=== PATIENT | male | born 1965 | race Caucasian/White ===

== ENCOUNTER 2016-12-18 05:57 | Observation (INO) | payer SELFPAY ==
[~2016-12-18] VITALS: Ht 188 cm; Wt 64.0 kg
[~2016-12-18 05:57] MED LIST: ADVAIR DISK1 INH; ADVAIR DISK2 INH; ADVAIR HF1 IN; ALBUTERO1 IN; ALBUTEROL S2.5 MG/.5 IN; ALBUTEROL0.083 % IN; AMOXICILLIN500 MG OR; AMOXICILLIN500 MG PO; AMOXICILLIN875 MG OR; ATIVAN0.5 MG PO; ATIVAN1 M1 PO; ATROVENT INH0.5 MG IN; AUGMENTIN875 MG OR; AZITHROMYCIN250 MG PO; BACTRIM DS1 TAB OR; BACTRIM1 TAB OR; BUSPIRONE5 MG PO; CEPHALEXIN500 MG PO; CIPRO500 MG OR; CIPROFLOXACN500 MG PO; COMBIVENT IN; DEPO-MEDROL80 MG/ML IM; DIAZEPAM5 MG PO; DOXEPIN HCL10 MG PO; FLEXERIL OR; FLEXERIL PO; FLEXERIL10 MG PO; GABAPENTIN300 MG PO; HYDROCO/APAP1 TA9 PO; KETOROLAC10 MG OR; KETOROLAC60 MG/2 ML IJ; LIBRIUM25 MG PO; LORTAB 5 OR; LORTAB 5-325 MG1 TAB PO; LORTAB 5/3255 MG PO; LORTAB 7.5 PO; LORTAB 7.5-3251 TAB PO; LORTAB/VICODIN1 TAB OR; LORTAB5 PO; Levaquin PO; MEDDOSEPAK OR; MEDDOSEPAK PO; MEDROL4 M1 PO; NAPROSYN500 MG OR; NAPROXEN EC500 MG OR; NEBULIZER; OMNICEF300 MG OR; PAROXETINE10 MG PO; PREDNISONE10 MG PO; PRIMATENE0.22 MG/A IN; PROAIR HFA IN; PROVENTIL INH17 GM IN; ROBITUSSIN AC10 ML PO; ROCEPHIN 1 GM1 GM IM; SOLU-MEDROL125 MG IM; SOMA350 MG OR; TORADOL PO; TRAMADOL HCL E100 M1 PO; TRAMADOL HCL100 MG PO; TRAMADOL HCL50 MG; TRAMADOL HCL50 MG OR; TRAMADOL HCL50 MG PO; TRAZODONE50 MG PO; TUBERSOL5 MG/0.1 M ID; TYLENOL500 MG OR; ULTRAM50 M1 PO; ULTRAM50 MG OR; ULTRAM50 MG PO; VENTOLIN HF1 IN; VENTOLIN HFA IN; ZITHROMAX250 MG PO; ZITHROMAX500 MG PO
[2016-12-18 06:46] LABS: HEMOGLOBIN 14.7 g/dl (14.0-18.0); IMMATURE GRANULOCYTES 0.2 % (0.0-1.0); MEAN CORPUSCULAR HGB 36.2 pG CALC (26.0-32.0); MEAN CORPUSCULAR HGB CONC 35.9 g/L CALC (32.0-36.0); NEUT# 2.64 thou/uL (1.82-7.42); RED BLOOD COUNT 4.06 mill/uL (4.70-6.10); RED CELL DISTRI WIDTH 15.2 % (11.5-15.5)
[2016-12-18 06:57] LABS: ALBUMIN 4.1 g/dL (3.2-5.0); ALKALINE PHOSPHATASE 121 u/l (38-126); ANION GAP 21 (6-22 (CALC)); BILIRUBIN, TOTAL 1.4 mg/dL (0.0-1.4); BUN 6 mg/dL (9-20); BUN/CREATININE RATIO 9 (12-20 (CALC)); CALCIUM 8.7 mg/dL (8.4-10.2); CARBON DIOXIDE 25 mmol/l (22-30); CHLORIDE 104 mmol/l (95-108); CREATININE 0.7 mg/dL (0.7-1.3); GFR > 60 ML/MIN (>=60 (CALC)); GFR FOR AFR.AMER. > 60 ML/MIN (>=60 (CALC)); GLUCOSE 133 mg/dL (75-110); POTASSIUM 3.4 mmol/l (3.5-5.1); SGOT/AST 154 u/l (17-59); SGPT/ALT 56 u/l (21-72); SODIUM 145 mmol/l (137-146); TOTAL PROTEIN 7.3 g/dL (6.3-8.2)
[2016-12-18 07:08] LABS: MYOGLOBIN 44 ng/mL (0 - 121)
[2016-12-18 07:09] LABS: ACT PARTIAL THROMBO TIME 25.5 SECONDS (20.0-32.5); PROTHROMBIN TIME 11.4 SECONDS (9.0-12.5)
[2016-12-18 10:24] VITALS: BP 150/93
[2016-12-18 15:26] VITALS: BP 146/73
[2016-12-18 20:45] VITALS: BP 144/88
[2016-12-18 23:28] VITALS: BP 148/87
[2016-12-19 04:38] VITALS: BP 149/98
[2016-12-19 06:23] LABS: HEMATOCRIT 32.9 % (39.0-50.0); HEMOGLOBIN 11.9 g/dl (14.0-18.0); IMMATURE GRANULOCYTES 0.6 % (0.0-1.0); MEAN CELL VOLUME 102.5 fL CALC (80.0-100.0); MEAN CORPUSCULAR HGB 37.1 pG CALC (26.0-32.0); MEAN CORPUSCULAR HGB CONC 36.2 g/L CALC (32.0-36.0); NEUT# 5.71 thou/uL (1.82-7.42); RED BLOOD COUNT 3.21 mill/uL (4.70-6.10); RED CELL DISTRI WIDTH 14.6 % (11.5-15.5)
[2016-12-19 06:31] LABS: BUN 5 mg/dL (9-20); BUN/CREATININE RATIO 9 (12-20 (CALC)); CALCIUM 8.6 mg/dL (8.4-10.2); CALCULATED LDLCHOLESTEROL 27 mg/dL (62-129 (CALC)); CARBON DIOXIDE 29 mmol/l (22-30); CHLORIDE 101 mmol/l (95-108); CREATININE 0.6 mg/dL (0.7-1.3); GFR > 60 ML/MIN (>=60 (CALC)); GFR FOR AFR.AMER. > 60 ML/MIN (>=60 (CALC)); GLUCOSE 115 mg/dL (75-110); HDL CHOLESTEROL 99 mg/dL (>=40); MAGNESIUM 1.3 mg/dL (1.6-2.3); POTASSIUM 3.6 mmol/l (3.5-5.1); TOTAL CHOLESTEROL 140 mg/dl (0-199); TOTAL TRIGLYCERIDES 72 mg/dl (30-149); VLDL CHOLESTROL 14 mg/dl (8-62 (CALC))
[2016-12-19 06:45] LABS: ANION GAP 9 (6-22 (CALC)); SODIUM 135 mmol/l (137-146)
[2016-12-19 09:43] VITALS: BP 157/97
[2016-12-19 12:11] VITALS: BP 134/82
[2016-12-19] MEDS ORDERED: MEDDOSEPAK PO (14:25)
[2016-12-19] MEDS ORDERED: LIBRIUM25 M1 PO (14:25)
== END 2016-12-19 17:30 | disposition home or self-care (01) | DRG 313 ==
LOC: ENPENDDIS → ED 05:57 → ED-I 07:55 → ED 08:44 → MS2 08:45
PROVIDERS: Emergency Medicine; ADMIT Internal Medicine; ATTEND Internal Medicine
PROC: 3E0234Z Introduction of Serum, Toxoid and Vaccine into Muscle, Percutaneous Approach (ICD-10-PCS; principal; 2016-12-19)
DX: R07.89 Other chest pain (principal); J44.1 Chronic obstructive pulmonary disease with (acute) exacerbation; F10.239 Alcohol dependence with withdrawal, unspecified; F17.210 Nicotine dependence, cigarettes, uncomplicated; J45.909 Unspecified asthma, uncomplicated; F32.9 Major depressive disorder, single episode, unspecified; G89.29 Other chronic pain; Z23 Encounter for immunization
CPT/HCPCS: G0378; J1650; J2060; Q9967

== ENCOUNTER 2017-01-02 21:21 | Emergency (ER) | payer SELFPAY ==
[~2017-01-02] VITALS: Ht 188 cm; Wt 63.6 kg
[~2017-01-02 21:21] MED LIST changes: +LIBRIUM25 M1 PO
[2017-01-02] MEDS ORDERED: LORAZEPAM0.5 MG PO (21:57)
[2017-01-02] MEDS ORDERED: VITAMIN B-12500 MCG PO (21:57)
[2017-01-02 22:25] LABS: HEMATOCRIT 38.7 % (39.0-50.0); HEMOGLOBIN 13.5 g/dl (14.0-18.0); IMMATURE GRANULOCYTES 0.3 % (0.0-1.0); MEAN CELL VOLUME 105.7 fL CALC (80.0-100.0); MEAN CORPUSCULAR HGB 36.9 pG CALC (26.0-32.0); MEAN CORPUSCULAR HGB CONC 34.9 g/L CALC (32.0-36.0); NEUT# 5.05 thou/uL (1.82-7.42); RED BLOOD COUNT 3.66 mill/uL (4.70-6.10); RED CELL DISTRI WIDTH 14.5 % (11.5-15.5)
[2017-01-02 22:26] LABS: URINE BILIRUBIN - DIPSTICK NEGATIVE (NEGATIVE); URINE BLOOD DIPSTICK NEGATIVE (NEGATIVE); URINE CLARITY CLEAR; URINE COLOR YELLOW; URINE GLUCOSE - DIPSTICK NEGATIVE (NEGATIVE); URINE KETONE TRACE mg/dL (NEGATIVE); URINE LEUK ESTERASE NEGATIVE (NEGATIVE); URINE NITRITE - DIPSTICK NEGATIVE (Negative); URINE PROTEIN - DIPSTICK NEGATIVE (NEG-TRACE); URINE SPECIFIC GRAVITY <=1.005; URINE UROBILINOGEN - DIPSTICK 0.2 E.U./dL (0.2)
[2017-01-02 22:28] LABS: COCAINE NEGATIVE (NEGATIVE); TETRAHYDROCANNABIONOL NEGATIVE (NEGATIVE)
[2017-01-02 22:29] LABS: BARBITURATES NEGATIVE (NEGATIVE); METHADONE NEGATIVE (NEGATIVE); OXCYCODONE NEGATIVE (NEGATIVE); TRICYLIC ANTIDEPRESSANTS NEGATIVE (NEGATIVE)
[2017-01-02 22:44] LABS: ALBUMIN 4.2 g/dL (3.2-5.0); ALKALINE PHOSPHATASE 162 u/l (38-126); ANION GAP 23 (6-22 (CALC)); BILIRUBIN, TOTAL 0.5 mg/dL (0.0-1.4); BUN 6 mg/dL (9-20); BUN/CREATININE RATIO 8 (12-20 (CALC)); CALCIUM 8.8 mg/dL (8.4-10.2); CARBON DIOXIDE 19 mmol/l (22-30); CHLORIDE 106 mmol/l (95-108); CREATININE 0.7 mg/dL (0.7-1.3); GFR > 60 ML/MIN (>=60 (CALC)); GFR FOR AFR.AMER. > 60 ML/MIN (>=60 (CALC)); GLUCOSE 68 mg/dL (75-110); SGOT/AST 119 u/l (17-59); SGPT/ALT 105 u/l (21-72); SODIUM 144 mmol/l (137-146); TOTAL PROTEIN 7.2 g/dL (6.3-8.2)
[2017-01-02 22:53] LABS: ETHYL ALCOHOL 479 mg/dl (0-30)
[2017-01-03 06:27] VITALS: BP 124/67
== END 2017-01-03 06:28 | disposition home or self-care (01) | DRG 125 ==
LOC: ED 21:21
PROVIDERS: Emergency Medicine
PROC: 0HQ1XZZ Repair Face Skin, External Approach (ICD-10-PCS; principal; 2017-01-02)
DX: S01.111A Laceration without foreign body of right eyelid and periocular area, initial encounter (principal); F10.129 Alcohol abuse with intoxication, unspecified; W01.0XXA Fall on same level from slipping, tripping and stumbling without subsequent striking against object, initial encounter; Y92.008 Other place in unspecified non-institutional (private) residence as the place of occurrence of the external cause; F17.210 Nicotine dependence, cigarettes, uncomplicated; Y90.8 Blood alcohol level of 240 mg/100 ml or more

== ENCOUNTER 2017-01-07 15:13 | Emergency (ER) | payer SELFPAY ==
[~2017-01-07] VITALS: Ht 188 cm; Wt 76.0 kg
[~2017-01-07 15:13] MED LIST changes: +LORAZEPAM0.5 MG PO; +VITAMIN B-12500 MCG PO
[2017-01-07 15:34] LABS: HEMATOCRIT 35.8 % (39.0-50.0); HEMOGLOBIN 12.7 g/dl (14.0-18.0); IMMATURE GRANULOCYTES 0.4 % (0.0-1.0); MEAN CELL VOLUME 105.6 fL CALC (80.0-100.0); MEAN CORPUSCULAR HGB 37.5 pG CALC (26.0-32.0); MEAN CORPUSCULAR HGB CONC 35.5 g/L CALC (32.0-36.0); NEUT# 2.64 thou/uL (1.82-7.42); RED BLOOD COUNT 3.39 mill/uL (4.70-6.10); RED CELL DISTRI WIDTH 15.1 % (11.5-15.5)
[2017-01-07 15:50] LABS: ALBUMIN 3.9 g/dL (3.2-5.0); ALKALINE PHOSPHATASE 123 u/l (38-126); ANION GAP 17 (6-22 (CALC)); BILIRUBIN, TOTAL 1.1 mg/dL (0.0-1.4); BUN 8 mg/dL (9-20); BUN/CREATININE RATIO 14 (12-20 (CALC)); CALCIUM 8.6 mg/dL (8.4-10.2); CARBON DIOXIDE 25 mmol/l (22-30); CHLORIDE 107 mmol/l (95-108); CREATININE 0.6 mg/dL (0.7-1.3); GFR > 60 ML/MIN (>=60 (CALC)); GFR FOR AFR.AMER. > 60 ML/MIN (>=60 (CALC)); GLUCOSE 102 mg/dL (75-110); POTASSIUM 4.5 mmol/l (3.5-5.1); SGOT/AST 233 u/l (17-59); SGPT/ALT 95 u/l (21-72); SODIUM 144 mmol/l (137-146); TOTAL PROTEIN 7.2 g/dL (6.3-8.2)
[2017-01-07 16:00] LABS: ETHYL ALCOHOL 436 mg/dl (0-30)
[2017-01-08] MEDS ORDERED: LIBRIUM25 M1 PO ×2 (00:52→00:53)
[2017-01-08 01:05] VITALS: BP 145/93
== END 2017-01-08 01:05 | disposition home or self-care (01) | DRG 897 ==
LOC: ED 15:13
PROVIDERS: Emergency Medicine
DX: F10.129 Alcohol abuse with intoxication, unspecified (principal); F17.210 Nicotine dependence, cigarettes, uncomplicated; Y90.8 Blood alcohol level of 240 mg/100 ml or more

== ENCOUNTER 2017-01-10 12:24 | Emergency (ER) | payer SELFPAY ==
[~2017-01-10] VITALS: Ht 188 cm; Wt 75.0 kg
[2017-01-10 13:05] LABS: HEMATOCRIT 36.6 % (39.0-50.0); HEMOGLOBIN 13.1 g/dl (14.0-18.0); IMMATURE GRANULOCYTES 0.3 % (0.0-1.0); MEAN CELL VOLUME 104.6 fL CALC (80.0-100.0); MEAN CORPUSCULAR HGB 37.4 pG CALC (26.0-32.0); MEAN CORPUSCULAR HGB CONC 35.8 g/L CALC (32.0-36.0); NEUT# 3.34 thou/uL (1.82-7.42); RED BLOOD COUNT 3.5 mill/uL (4.70-6.10); RED CELL DISTRI WIDTH 14.6 % (11.5-15.5)
[2017-01-10 13:34] LABS: ALBUMIN 3.8 g/dL (3.2-5.0); ALKALINE PHOSPHATASE 141 u/l (38-126); ANION GAP 16 (6-22 (CALC)); BILIRUBIN, TOTAL 0.6 mg/dL (0.0-1.4); BUN 10 mg/dL (9-20); BUN/CREATININE RATIO 16 (12-20 (CALC)); CALCIUM 8.6 mg/dL (8.4-10.2); CARBON DIOXIDE 26 mmol/l (22-30); CHLORIDE 107 mmol/l (95-108); CREATININE 0.6 mg/dL (0.7-1.3); GFR > 60 ML/MIN (>=60 (CALC)); GFR FOR AFR.AMER. > 60 ML/MIN (>=60 (CALC)); GLUCOSE 105 mg/dL (75-110); POTASSIUM 3.8 mmol/l (3.5-5.1); SGOT/AST 254 u/l (17-59); SGPT/ALT 91 u/l (21-72); SODIUM 145 mmol/l (137-146); TOTAL PROTEIN 6.9 g/dL (6.3-8.2)
[2017-01-10 18:08] VITALS: BP 155/93
== END 2017-01-10 18:33 | disposition home or self-care (01) | DRG 897 ==
LOC: ED 12:24
PROVIDERS: Emergency Medicine
DX: F10.129 Alcohol abuse with intoxication, unspecified (principal); F17.210 Nicotine dependence, cigarettes, uncomplicated; J45.909 Unspecified asthma, uncomplicated; G89.29 Other chronic pain; M54.9 Dorsalgia, unspecified

== ENCOUNTER 2017-01-14 10:50 | Emergency (ER) | payer SELFPAY ==
[~2017-01-14] VITALS: Ht 188 cm; Wt 63.0 kg
[2017-01-14] MEDS ORDERED: PROAIR HFA IN (11:21)
[2017-01-14] MEDS ORDERED: ADVAIR DISK1 IN (11:21)
[2017-01-14 11:53] LABS: HEMATOCRIT 36.4 % (39.0-50.0); IMMATURE GRANULOCYTES 0.5 % (0.0-1.0); MEAN CELL VOLUME 106.1 fL CALC (80.0-100.0); MEAN CORPUSCULAR HGB 37.9 pG CALC (26.0-32.0); MEAN CORPUSCULAR HGB CONC 35.7 g/L CALC (32.0-36.0); NEUT# 3.59 thou/uL (1.82-7.42); RED BLOOD COUNT 3.43 mill/uL (4.70-6.10); RED CELL DISTRI WIDTH 14.8 % (11.5-15.5)
[2017-01-14 12:07] LABS: ALBUMIN 4.6 g/dL (3.2-5.0); ALKALINE PHOSPHATASE 161 u/l (38-126); ANION GAP 23 (6-22 (CALC)); BILIRUBIN, TOTAL 1.2 mg/dL (0.0-1.4); BUN 3 mg/dL (9-20); BUN/CREATININE RATIO 7 (12-20 (CALC)); CALCIUM 9.4 mg/dL (8.4-10.2); CARBON DIOXIDE 23 mmol/l (22-30); CHLORIDE 103 mmol/l (95-108); CREATININE 0.5 mg/dL (0.7-1.3); GFR > 60 ML/MIN (>=60 (CALC)); GFR FOR AFR.AMER. > 60 ML/MIN (>=60 (CALC)); GLUCOSE 82 mg/dL (75-110); POTASSIUM 3.8 mmol/l (3.5-5.1); SGOT/AST 330 u/l (17-59); SGPT/ALT 95 u/l (21-72); SODIUM 145 mmol/l (137-146); TOTAL PROTEIN 8.6 g/dL (6.3-8.2)
[2017-01-14 12:15] LABS: ETHYL ALCOHOL 389 mg/dl (0-30)
[2017-01-14 13:10] LABS: URINE BILIRUBIN - DIPSTICK NEGATIVE (NEGATIVE); URINE BLOOD DIPSTICK NEGATIVE (NEGATIVE); URINE CLARITY CLEAR; URINE COLOR YELLOW; URINE GLUCOSE - DIPSTICK NEGATIVE (NEGATIVE); URINE KETONE NEGATIVE (NEGATIVE); URINE NITRITE - DIPSTICK NEGATIVE (Negative); URINE PROTEIN - DIPSTICK NEGATIVE (NEG-TRACE); URINE SPECIFIC GRAVITY <=1.005; URINE UROBILINOGEN - DIPSTICK 0.2 E.U./dL (0.2)
[2017-01-14 13:20] LABS: BARBITURATES NEGATIVE (NEGATIVE); COCAINE NEGATIVE (NEGATIVE); METHADONE NEGATIVE (NEGATIVE); OXCYCODONE NEGATIVE (NEGATIVE); TETRAHYDROCANNABIONOL POSITIVE (NEGATIVE); TRICYLIC ANTIDEPRESSANTS NEGATIVE (NEGATIVE); URINE LEUK ESTERASE NEGATIVE (NEGATIVE)
[2017-01-14] MEDS ORDERED: CEPHALEXIN500 MG PO (13:31)
[2017-01-14 13:36] VITALS: BP 115/70
== END 2017-01-14 13:44 | disposition home or self-care (01) | DRG 603 ==
LOC: ED 10:50
PROVIDERS: Emergency Medicine
DX: L03.113 Cellulitis of right upper limb (principal); F10.129 Alcohol abuse with intoxication, unspecified; F12.90 Cannabis use, unspecified, uncomplicated; Y90.8 Blood alcohol level of 240 mg/100 ml or more; W19.XXXD Unspecified fall, subsequent encounter

== ENCOUNTER 2017-02-16 13:31 | Emergency (ER) | payer MEDICAID ==
[~2017-02-16] VITALS: Ht 188 cm; Wt 60.0 kg
[~2017-02-16 13:31] MED LIST changes: +ADVAIR DISK1 IN
[2017-02-16 14:42] LABS: HEMATOCRIT 41.1 % (39.0-50.0); HEMOGLOBIN 14.4 g/dl (14.0-18.0); IMMATURE GRANULOCYTES 0.2 % (0.0-1.0); MEAN CELL VOLUME 101.2 fL CALC (80.0-100.0); MEAN CORPUSCULAR HGB 35.5 pG CALC (26.0-32.0); NEUT# 1.98 thou/uL (1.82-7.42); RED BLOOD COUNT 4.06 mill/uL (4.70-6.10); RED CELL DISTRI WIDTH 14.9 % (11.5-15.5)
[2017-02-16 14:48] LABS: ALBUMIN 3.4 g/dL (3.2-5.0); ALKALINE PHOSPHATASE 257 u/l (38-126); ANION GAP 18 (6-22 (CALC)); BUN 4 mg/dL (9-20); BUN/CREATININE RATIO 9 (12-20 (CALC)); CALCIUM 8.6 mg/dL (8.4-10.2); CARBON DIOXIDE 25 mmol/l (22-30); CHLORIDE 101 mmol/l (95-108); CREATININE 0.5 mg/dL (0.7-1.3); GFR > 60 ML/MIN (>=60 (CALC)); GFR FOR AFR.AMER. > 60 ML/MIN (>=60 (CALC)); GLUCOSE 82 mg/dL (75-110); POTASSIUM 3.8 mmol/l (3.5-5.1); SGOT/AST 635 u/l (17-59); SGPT/ALT 193 u/l (21-72); SODIUM 139 mmol/l (137-146); TOTAL PROTEIN 6.9 g/dL (6.3-8.2)
[2017-02-16 15:00] LABS: MYOGLOBIN 32 ng/mL (0 - 121)
[2017-02-16] MEDS ORDERED: PERCOCET 5/325M1 TAB PO (15:09)
[2017-02-16] MEDS ORDERED: LEVAQUIN750 MG PO (15:09)
[2017-02-16 15:24] VITALS: BP 118/64
== END 2017-02-16 15:33 | disposition home or self-care (01) | DRG 194 ==
LOC: ED 13:31
PROVIDERS: Emergency Medicine
DX: J18.9 Pneumonia, unspecified organism (principal); S22.41XA Multiple fractures of ribs, right side, initial encounter for closed fracture; R06.02 Shortness of breath; R07.81 Pleurodynia; W18.39XA Other fall on same level, initial encounter; Y92.009 Unspecified place in unspecified non-institutional (private) residence as the place of occurrence of the external cause; R07.89 Other chest pain; F17.200 Nicotine dependence, unspecified, uncomplicated; Z72.89 Other problems related to lifestyle

== ENCOUNTER 2017-04-17 17:27 | Emergency (ER) | payer MEDICAID ==
[~2017-04-17] VITALS: Ht 182.9 cm; Wt 70.0 kg
[~2017-04-17 17:27] MED LIST changes: +LEVAQUIN750 MG PO; +PERCOCET 5/325M1 TAB PO
[2017-04-17 18:32] LABS: HEMATOCRIT 39.7 % (39.0-50.0); HEMOGLOBIN 14.1 g/dl (14.0-18.0); IMMATURE GRANULOCYTES 0.3 % (0.0-1.0); MEAN CORPUSCULAR HGB 34.8 pG CALC (26.0-32.0); MEAN CORPUSCULAR HGB CONC 35.5 g/L CALC (32.0-36.0); NEUT# 4.16 thou/uL (1.82-7.42); RED BLOOD COUNT 4.05 mill/uL (4.70-6.10); RED CELL DISTRI WIDTH 15.9 % (11.5-15.5)
[2017-04-17 18:48] LABS: PROTHROMBIN TIME 10.3 SECONDS (9.0-12.5)
[2017-04-17 18:49] LABS: ALBUMIN 3.7 g/dL (3.2-5.0); ALKALINE PHOSPHATASE 158 u/l (38-126); ANION GAP 21 (6-22 (CALC)); BILIRUBIN, TOTAL 1.2 mg/dL (0.0-1.4); CALCIUM 8.6 mg/dL (8.4-10.2); CARBON DIOXIDE 19 mmol/l (22-30); CHLORIDE 101 mmol/l (95-108); CREATININE 0.5 mg/dL (0.7-1.3); GFR > 60 ML/MIN (>=60 (CALC)); GFR FOR AFR.AMER. > 60 ML/MIN (>=60 (CALC)); GLUCOSE 105 mg/dL (75-110); SGOT/AST 204 u/l (17-59); SGPT/ALT 105 u/l (21-72); SODIUM 138 mmol/l (137-146); TOTAL PROTEIN 7.1 g/dL (6.3-8.2)
[2017-04-17 18:59] LABS: BUN 2 mg/dL (9-20); BUN/CREATININE RATIO 4 (12-20 (CALC)); ETHYL ALCOHOL 380 mg/dl (0-30)
[2017-04-17 19:01] LABS: MYOGLOBIN 31 ng/mL (0 - 121)
[2017-04-17 20:46] LABS: URINE BILIRUBIN - DIPSTICK NEGATIVE (NEGATIVE); URINE BLOOD DIPSTICK NEGATIVE (NEGATIVE); URINE CLARITY CLEAR; URINE COLOR YELLOW; URINE GLUCOSE - DIPSTICK NEGATIVE (NEGATIVE); URINE KETONE NEGATIVE (NEGATIVE); URINE LEUK ESTERASE NEGATIVE (NEGATIVE); URINE NITRITE - DIPSTICK NEGATIVE (Negative); URINE PROTEIN - DIPSTICK NEGATIVE (NEG-TRACE); URINE SPECIFIC GRAVITY <=1.005; URINE UROBILINOGEN - DIPSTICK 0.2 E.U./dL (0.2)
[2017-04-17 23:12] LABS: ETHYL ALCOHOL 251 mg/dl (0-30)
[2017-04-18] MEDS ORDERED: PREVACID30 M3 PO (06:25)
[2017-04-18] MEDS ORDERED: LIBRIUM25 M1 PO (06:25)
[2017-04-18 06:36] VITALS: BP 97/66
== END 2017-04-18 08:20 | disposition home or self-care (01) | DRG 313 ==
LOC: ED 17:27
PROVIDERS: Emergency Medicine
DX: R07.89 Other chest pain (principal); J44.1 Chronic obstructive pulmonary disease with (acute) exacerbation; F10.229 Alcohol dependence with intoxication, unspecified; G89.29 Other chronic pain; M54.9 Dorsalgia, unspecified; F17.210 Nicotine dependence, cigarettes, uncomplicated
CPT/HCPCS: J1956; J2060

== ENCOUNTER 2017-05-10 12:46 | Emergency (ER) | payer MEDICAID ==
[~2017-05-10] VITALS: Ht 188 cm; Wt 55.0 kg
[~2017-05-10 12:46] MED LIST changes: +PREVACID30 M3 PO
[2017-05-10 13:34] LABS: HEMATOCRIT 44.8 % (39.0-50.0); HEMOGLOBIN 15.3 g/dl (14.0-18.0); IMMATURE GRANULOCYTES 0.1 % (0.0-1.0); MEAN CELL VOLUME 102.1 fL CALC (80.0-100.0); MEAN CORPUSCULAR HGB 34.9 pG CALC (26.0-32.0); MEAN CORPUSCULAR HGB CONC 34.2 g/L CALC (32.0-36.0); NEUT# 4.55 thou/uL (1.82-7.42); RED BLOOD COUNT 4.39 mill/uL (4.70-6.10); RED CELL DISTRI WIDTH 14.2 % (11.5-15.5)
[2017-05-10 14:32] LABS: ALKALINE PHOSPHATASE 117 u/l (38-126); ANION GAP 18 (6-22 (CALC)); BILIRUBIN, TOTAL 0.7 mg/dL (0.0-1.4); BUN 4 mg/dL (9-20); BUN/CREATININE RATIO 6 (12-20 (CALC)); CALCIUM 8.6 mg/dL (8.4-10.2); CARBON DIOXIDE 22 mmol/l (22-30); CHLORIDE 108 mmol/l (95-108); CREATININE 0.6 mg/dL (0.7-1.3); GFR > 60 ML/MIN (>=60 (CALC)); GFR FOR AFR.AMER. > 60 ML/MIN (>=60 (CALC)); GLUCOSE 87 mg/dL (75-110); POTASSIUM 3.9 mmol/l (3.5-5.1); SGOT/AST 63 u/l (17-59); SGPT/ALT 42 u/l (21-72); SODIUM 144 mmol/l (137-146); TOTAL PROTEIN 7.4 g/dL (6.3-8.2)
[2017-05-10 14:39] LABS: URINE BILIRUBIN - DIPSTICK NEGATIVE (NEGATIVE); URINE BLOOD DIPSTICK NEGATIVE (NEGATIVE); URINE CLARITY CLEAR; URINE COLOR YELLOW; URINE GLUCOSE - DIPSTICK NEGATIVE (NEGATIVE); URINE KETONE NEGATIVE (NEGATIVE); URINE NITRITE - DIPSTICK NEGATIVE (Negative); URINE PH 5.5 (4.5-8.0); URINE PROTEIN - DIPSTICK NEGATIVE (NEG-TRACE); URINE SPECIFIC GRAVITY <=1.005; URINE UROBILINOGEN - DIPSTICK 0.2 E.U./dL (0.2)
[2017-05-10 14:43] LABS: ETHYL ALCOHOL 438 mg/dl (0-30)
[2017-05-10 14:47] LABS: URINE LEUK ESTERASE NEGATIVE (NEGATIVE)
[2017-05-10] MEDS ORDERED: ZPAK PO (15:35)
[2017-05-10 15:48] VITALS: BP 126/74
== END 2017-05-10 16:00 | disposition home or self-care (01) | DRG 203 ==
LOC: ED 12:46
PROVIDERS: Family Medicine
DX: J45.909 Unspecified asthma, uncomplicated (principal); F10.129 Alcohol abuse with intoxication, unspecified; F17.210 Nicotine dependence, cigarettes, uncomplicated; M54.9 Dorsalgia, unspecified; G89.29 Other chronic pain; F12.90 Cannabis use, unspecified, uncomplicated

== ENCOUNTER 2017-05-13 20:34 | Emergency (ER) | payer MEDICAID ==
[~2017-05-13] VITALS: Ht 188 cm; Wt 68.2 kg
[~2017-05-13 20:34] MED LIST changes: +ZPAK PO
[2017-05-13 21:13] LABS: HEMATOCRIT 38.9 % (39.0-50.0); HEMOGLOBIN 13.4 g/dl (14.0-18.0); IMMATURE GRANULOCYTES 0.2 % (0.0-1.0); MEAN CELL VOLUME 99.7 fL CALC (80.0-100.0); MEAN CORPUSCULAR HGB 34.4 pG CALC (26.0-32.0); MEAN CORPUSCULAR HGB CONC 34.4 g/L CALC (32.0-36.0); NEUT# 3.88 thou/uL (1.82-7.42); RED BLOOD COUNT 3.9 mill/uL (4.70-6.10); RED CELL DISTRI WIDTH 14.1 % (11.5-15.5)
[2017-05-13 21:39] LABS: ALBUMIN 3.9 g/dL (3.2-5.0); ALKALINE PHOSPHATASE 120 u/l (38-126); ANION GAP 22 (6-22 (CALC)); BILIRUBIN, TOTAL 1.3 mg/dL (0.0-1.4); BUN 5 mg/dL (9-20); BUN/CREATININE RATIO 9 (12-20 (CALC)); CALCIUM 8.3 mg/dL (8.4-10.2); CARBON DIOXIDE 19 mmol/l (22-30); CHLORIDE 103 mmol/l (95-108); CREATININE 0.6 mg/dL (0.7-1.3); GFR > 60 ML/MIN (>=60 (CALC)); GFR FOR AFR.AMER. > 60 ML/MIN (>=60 (CALC)); GLUCOSE 198 mg/dL (75-110); POTASSIUM 4.3 mmol/l (3.5-5.1); SGOT/AST 97 u/l (17-59); SGPT/ALT 41 u/l (21-72); SODIUM 140 mmol/l (137-146); TOTAL PROTEIN 7.4 g/dL (6.3-8.2)
[2017-05-13 22:02] LABS: AMYLASE 48 u/l (30-110); LIPASE 11 u/l (23-300)
[2017-05-13 22:10] LABS: ETHYL ALCOHOL 412 mg/dl (0-30)
[2017-05-13] MEDS ORDERED: NEXIUM40 M1 PO (22:15)
[2017-05-13] MEDS ORDERED: TRAMADOL HYDROC50 MG PO (22:20)
[2017-05-13 22:26] VITALS: BP 124/80
[2017-05-13] MEDS ORDERED: LIBRIUM25 MG PO (22:32)
== END 2017-05-13 22:55 | disposition home or self-care (01) | DRG 101 ==
LOC: ED 20:34
PROVIDERS: Emergency Medicine
DX: R56.9 Unspecified convulsions (principal); F10.129 Alcohol abuse with intoxication, unspecified; Y90.8 Blood alcohol level of 240 mg/100 ml or more; R00.0 Tachycardia, unspecified
CPT/HCPCS: J2060

== ENCOUNTER 2017-06-20 19:08 | Emergency (ER) | payer MEDICAID ==
[~2017-06-20] VITALS: Ht 188 cm; Wt 70.0 kg
[~2017-06-20 19:08] MED LIST changes: +NEXIUM40 M1 PO; +TRAMADOL HYDROC50 MG PO
[2017-06-20 19:57] LABS: HEMATOCRIT 42.3 % (39.0-50.0); HEMOGLOBIN 14.7 g/dl (14.0-18.0); IMMATURE GRANULOCYTES 0.2 % (0.0-1.0); MEAN CELL VOLUME 94.4 fL CALC (80.0-100.0); MEAN CORPUSCULAR HGB 32.8 pG CALC (26.0-32.0); MEAN CORPUSCULAR HGB CONC 34.8 g/L CALC (32.0-36.0); NEUT# 2.57 thou/uL (1.82-7.42); RED BLOOD COUNT 4.48 mill/uL (4.70-6.10); RED CELL DISTRI WIDTH 15.3 % (11.5-15.5)
[2017-06-20 20:04] LABS: ALBUMIN 3.6 g/dL (3.2-5.0); ALKALINE PHOSPHATASE 103 u/l (38-126); ANION GAP 18 (6-22 (CALC)); BILIRUBIN, TOTAL 1.3 mg/dL (0.0-1.4); BUN 3 mg/dL (9-20); BUN/CREATININE RATIO 5 (12-20 (CALC)); CALCIUM 8.4 mg/dL (8.4-10.2); CARBON DIOXIDE 22 mmol/l (22-30); CHLORIDE 101 mmol/l (95-108); CREATININE 0.6 mg/dL (0.7-1.3); GFR > 60 ML/MIN (>=60 (CALC)); GFR FOR AFR.AMER. > 60 ML/MIN (>=60 (CALC)); GLUCOSE 104 mg/dL (75-110); POTASSIUM 2.7 mmol/l (3.5-5.1); SGOT/AST 177 u/l (17-59); SGPT/ALT 70 u/l (21-72); SODIUM 138 mmol/l (137-146)
[2017-06-20 20:15] LABS: MYOGLOBIN 35 ng/mL (0 - 121)
[2017-06-20 20:28] LABS: ETHYL ALCOHOL 356 mg/dl (0-30)
[2017-06-20 20:56] LABS: URINE BILIRUBIN - DIPSTICK NEGATIVE (NEGATIVE); URINE BLOOD DIPSTICK NEGATIVE (NEGATIVE); URINE CLARITY CLEAR; URINE COLOR YELLOW; URINE GLUCOSE - DIPSTICK NEGATIVE (NEGATIVE); URINE KETONE NEGATIVE (NEGATIVE); URINE LEUK ESTERASE NEGATIVE (NEGATIVE); URINE NITRITE - DIPSTICK NEGATIVE (Negative); URINE PROTEIN - DIPSTICK NEGATIVE (NEG-TRACE); URINE SPECIFIC GRAVITY <=1.005; URINE UROBILINOGEN - DIPSTICK 0.2 E.U./dL (0.2)
[2017-06-20 20:59] LABS: COCAINE NEGATIVE (NEGATIVE)
[2017-06-20 21:00] LABS: BARBITURATES NEGATIVE (NEGATIVE); METHADONE NEGATIVE (NEGATIVE); OXCYCODONE NEGATIVE (NEGATIVE); TETRAHYDROCANNABIONOL NEGATIVE (NEGATIVE); TRICYLIC ANTIDEPRESSANTS NEGATIVE (NEGATIVE)
[2017-06-20] MEDS ORDERED: XANAX0.5 MG PO (21:24)
[2017-06-20] MEDS ORDERED: FOLIC ACI1 PO (21:24)
[2017-06-21 01:55] VITALS: BP 101/65
== END 2017-06-21 01:55 | disposition home or self-care (01) | DRG 897 ==
LOC: ED 19:08
PROVIDERS: Emergency Medicine
DX: F10.20 Alcohol dependence, uncomplicated (principal); F17.210 Nicotine dependence, cigarettes, uncomplicated; J45.909 Unspecified asthma, uncomplicated; F12.90 Cannabis use, unspecified, uncomplicated; G89.29 Other chronic pain; M54.9 Dorsalgia, unspecified

== ENCOUNTER 2017-07-11 06:21 | Emergency (ER) | payer MEDICAID ==
[~2017-07-11] VITALS: Ht 188 cm; Wt 72.0 kg
[~2017-07-11 06:21] MED LIST changes: +FOLIC ACI1 PO; +XANAX0.5 MG PO
[2017-07-11 06:47] LABS: HEMATOCRIT 44.6 % (39.0-50.0); HEMOGLOBIN 15.3 g/dl (14.0-18.0); MEAN CELL VOLUME 95.1 fL CALC (80.0-100.0); MEAN CORPUSCULAR HGB 32.6 pG CALC (26.0-32.0); MEAN CORPUSCULAR HGB CONC 34.3 g/L CALC (32.0-36.0); NEUT# 2.02 thou/uL (1.82-7.42); RED BLOOD COUNT 4.69 mill/uL (4.70-6.10)
[2017-07-11 06:57] LABS: ALBUMIN 4.3 g/dL (3.2-5.0); ALKALINE PHOSPHATASE 105 u/l (38-126); ANION GAP 22 (6-22 (CALC)); BUN 5 mg/dL (9-20); BUN/CREATININE RATIO 10 (12-20 (CALC)); CARBON DIOXIDE 22 mmol/l (22-30); CHLORIDE 106 mmol/l (95-108); CREATININE 0.6 mg/dL (0.7-1.3); GFR > 60 ML/MIN (>=60 (CALC)); GFR FOR AFR.AMER. > 60 ML/MIN (>=60 (CALC)); GLUCOSE 80 mg/dL (75-110); POTASSIUM 4.8 mmol/l (3.5-5.1); SGOT/AST 129 u/l (17-59); SGPT/ALT 82 u/l (21-72); SODIUM 145 mmol/l (137-146); TOTAL PROTEIN 7.6 g/dL (6.3-8.2)
[2017-07-11 08:06] VITALS: BP 135/87
== END 2017-07-11 07:54 | disposition home or self-care (01) | DRG 897 ==
LOC: ED 06:21
PROVIDERS: Emergency Medicine
DX: F10.10 Alcohol abuse, uncomplicated (principal); F17.210 Nicotine dependence, cigarettes, uncomplicated; R42 Dizziness and giddiness
CPT/HCPCS: J2060

== ENCOUNTER 2017-07-18 22:28 | Emergency (ER) | payer MEDICAID ==
[~2017-07-18] VITALS: Ht 188 cm; Wt 60.0 kg
[2017-07-18 23:55] VITALS: BP 139/70
== END 2017-07-18 23:55 | disposition left against medical advice (07) | DRG 951 ==
LOC: ED 22:28
DX: Z91.19 Patient's noncompliance with other medical treatment and regimen (principal)

== ENCOUNTER 2017-08-03 19:07 | Observation (INO) | payer MEDICAID ==
[~2017-08-03] VITALS: Ht 193 cm; Wt 59.1 kg
--- NOTE | 2017-08-03 19:07 | NUR ---
PT. IMMEDIATELY TO TREATMENT ROOM #10 ON ARRIVAL TO ED.
--- NOTE | 2017-08-03 19:35 | NUR ---
PT FOUND STANDING AT BEDSIDE, STATING "I NEED TO PEE." PT WITH VERY UNSTEADY GAIT AND MOTIONING FORWARD AND BACKWARD STANDING. CLOTH FINISHING RANGE BACK TENDER AND NURSE LE ASSISTED PT WITH URINAL. PT UNCOOPERATIVE WITH STAFF. STATING "IM GOING TO LEAVE, AND NO ONE IS GOING TO STOP ME." INFORMED PT THAT IT WOULD NOT BE SAFE FOR PT TO LEAVE GAIT IS UNSTEADY AND POTENTIAL FOR FALL. PT CONTINUALLY ARGUMENTATIVE WITH STAFF. MOUNTED POLICE B/S.
--- NOTE | 2017-08-03 19:49 | NUR ---
PIPE PULLER B/S FOR BLOOD DRAW.
[2017-08-03 20:07] LABS: HEMATOCRIT 40.8 % (39.0-50.0); HEMOGLOBIN 13.9 g/dl (14.0-18.0); IMMATURE GRANULOCYTES 0.2 % (0.0-1.0); MEAN CELL VOLUME 98.3 fL CALC (80.0-100.0); MEAN CORPUSCULAR HGB 33.5 pG CALC (26.0-32.0); MEAN CORPUSCULAR HGB CONC 34.1 g/L CALC (32.0-36.0); NEUT# 2.91 thou/uL (1.82-7.42); RED BLOOD COUNT 4.15 mill/uL (4.70-6.10)
--- NOTE | 2017-08-03 20:16 | NUR ---
PT BACK FROM CT WAITING ON RESULTS.
[2017-08-03 20:26] LABS: ALBUMIN 4.3 g/dL (3.2-5.0); ALKALINE PHOSPHATASE 74 u/l (38-126); ANION GAP 19 (6-22 (CALC)); BUN 5 mg/dL (9-20); BUN/CREATININE RATIO 8 (12-20 (CALC)); CALCIUM 10.1 mg/dL (8.4-10.2); CARBON DIOXIDE 25 mmol/l (22-30); CHLORIDE 104 mmol/l (95-108); CREATININE 0.6 mg/dL (0.7-1.3); GFR > 60 ML/MIN (>=60 (CALC)); GFR FOR AFR.AMER. > 60 ML/MIN (>=60 (CALC)); GLUCOSE 92 mg/dL (75-110); POTASSIUM 3.4 mmol/l (3.5-5.1); SGOT/AST 65 u/l (17-59); SGPT/ALT 56 u/l (21-72); SODIUM 144 mmol/l (137-146); TOTAL PROTEIN 7.5 g/dL (6.3-8.2)
[2017-08-03 20:38] LABS: ETHYL ALCOHOL 376 mg/dl (0-30)
--- NOTE | 2017-08-03 20:57 | NUR ---
PT ASSISTED TO BEDSIDE FOR URINAL USE X 2 ASSIST. 900 CC OF YELLOW URINE PRODUCED. PT PLACED BACK IN BED WITH SIDE RAILS X 2. SECURITY B/S. PO FLUIDS GIVEN.
--- NOTE | 2017-08-03 21:03 | NUR ---
WOUND CARE PROVIDED TO FACE. PT TOLERATED WELL. SIDE RAILS UP X 2. INFORMED PT TO NOT GET OUT OF BED UNLESS STAFF MEMBERS PRESENT. VERBALIZED UNDERSTANDING.
--- NOTE | 2017-08-03 21:29 | NUR ---
SANDWICH GIVEN. PT KNOWS HE WILL BE HERE IN ER FOR HOURS DUE TO ELEVATED ETOH.
--- NOTE | 2017-08-03 22:06 | NUR ---
IV ANCEF INFUSING PER MD ORDER. PT RESTING ON STRETCHER. DENIES ANY NEEDS AT THIS TIME.
--- NOTE | 2017-08-03 23:41 | NUR ---
PT'S SAT DROPS TO 92 WHEN ASLEEP BUT GOES UP TO 96-97 WHEN AWAKE. PT WILL HAVE REPEAT ETOH IN EARLY AM.
--- NOTE | 2017-08-04 00:52 | NUR ---
VS STABLE. PT TO HAVE REPEAT ETOH LEVEL AT 0530.
--- NOTE | 2017-08-04 01:52 | NUR ---
PT CONTINUES TO REST QUIETLY ON STRETCHER.
--- NOTE | 2017-08-04 02:55 | NUR ---
NO CHANGE IN ASSESSMENT. PT TO HAVE REPEAT LEVEL IN AM.. CALL FITZPATRICK IN REACH,
--- NOTE | 2017-08-04 03:28 | NUR ---
PT REPORTING SOB AND COUGH. DR KISER B/S. ORDERS RECEIVED FROM [facility].
--- NOTE | 2017-08-04 03:33 | NUR ---
PT AWAKE AND STATED HE NEEDED AN INHALER. RESP IN FOR NEB TREATMENT.
--- NOTE | 2017-08-04 03:40 | NUR ---
respiratory treatment given. breathing tech. for good deposition to the lungs.
--- NOTE | 2017-08-04 04:12 | NUR ---
DR KISER B/S SPEAKING WITH PT REGARDING POSS ADMISSION.
--- NOTE | 2017-08-04 04:16 | NUR ---
DR KISER ON PHONE WT DR SHI.
--- NOTE | 2017-08-04 04:32 | NUR ---
REPORT GIVEN TO CLEMENTE VALDERRAMA.
[2017-08-04 04:41] VITALS: BP 141/77
--- NOTE | 2017-08-04 04:41 | NUR ---
male pt received to M/S 272 via wc accompanied by Rajeev Mcallister RN in stable condition; ambulatory with steady gait; admission assessment completed at this time; pt alert and oriented; c/o of falling face first into sidewalk in front of home"; admits to facial pain/throbbing rating 4/10; resp even and unlabored; lungs coarse with wheezing throughout; skin color wnl; ra; sliver cutter loose cough noted; hr reg; strong pulses; no edema noted; bilat knee high kimmy hose placed; abd soft with bs present; pt denies difficulty voiding/no urine to inspect; #20 ems site flushed and patent to lfa; no redness or edema noted at site; abrasions noted to left nose bridge and left shoulder; bruising noted to left lat eye anf left forehead; pic obtained and placed on chart; pt oriented to bed and call light system; plan of care explained; will continue to monitor
[2017-08-04 04:43] LABS: ANION GAP 16 (6-22 (CALC)); BUN 6 mg/dL (9-20); BUN/CREATININE RATIO 11 (12-20 (CALC)); CALCIUM 9.2 mg/dL (8.4-10.2); CARBON DIOXIDE 24 mmol/l (22-30); CHLORIDE 109 mmol/l (95-108); CREATININE 0.5 mg/dL (0.7-1.3); GFR > 60 ML/MIN (>=60 (CALC)); GFR FOR AFR.AMER. > 60 ML/MIN (>=60 (CALC)); GLUCOSE 88 mg/dL (75-110); MAGNESIUM 1.6 mg/dL (1.6-2.3); POTASSIUM 3.4 mmol/l (3.5-5.1); SODIUM 146 mmol/l (137-146)
--- NOTE | 2017-08-04 04:45 | NUR ---
Admission Note Report Given to: CLEMENTE VALDERRAMA Transported by: X Wheelchair Stretcher Transported with: X Nurse Transporter X Patent IV [id number] Vacuum Pan Operator
--- NOTE | 2017-08-04 05:24 | NUR ---
pt transferred to xray dept via wc in stable condition accompanied by rEwin Oliveros LPN
--- NOTE | 2017-08-04 05:29 | NUR ---
pt returned to unit via wc in stable condition;
--- NOTE | 2017-08-04 05:31 | NUR ---
Cardinal Lisbeth Brian called in regards to unverified meds
--- NOTE | 2017-08-04 06:03 | NUR ---
awake; coffee provided as per request; iv flushed and patent; ivf initiated as per orders; meds explained and administered; plan of care reviewed; pt with complaints about possible alcohol withdraw; pt requesting "ativan" for possible withdraw; no s/s of DT's noted at present; bed in lowest position; call light within reach
--- NOTE | 2017-08-04 07:00 | NUR ---
SHIFT CHANGE REPORT FORM LAVELLE, PT AWAKE ALERT AND ORIENTED SITTING UP IN BED, BRUISING TO NOSE AND LEFT FACE OBSERVED, N OC/O DISCOMFORT AT THIS TIME, IVF INFUSING, CALL FITZPATRICK IN REACH.
[2017-08-04 08:07] VITALS: BP 115/80
[2017-08-04] MEDS ORDERED: ANTABUSE500 MG PO (08:45)
[2017-08-04] MEDS ORDERED: ACAMPROSATE CA333 MG PO (08:46)
[2017-08-04] MEDS ORDERED: LIBRIUM25 MG PO (08:48)
[2017-08-04] MEDS ORDERED: COMPAZINE10 MG PO (08:49)
[2017-08-04] MEDS ORDERED: ZYBAN150 MG PO (08:49)
[2017-08-04] MEDS ORDERED: ZPAK PO (08:50)
[2017-08-04] MEDS ORDERED: PREDNISONE50 MG PO (08:50)
--- NOTE | 2017-08-04 12:41 | NUR ---
C/O FACE PAIN AND INQUIRED WHETHER OR NOT MD PRESCRIBED ANY THING BESIDES TYLENOL FOR PAIN, ADVISED TYLENOL IS ONLY MED ORDERED. ICE PACK OFFERED AND PLACED ON LEFT FACE. REVIEWED ALL D/C ORDERS AND INSTRUCTIONS FROM MD WITH PT, EDUCATIONAL MATERIALS ALSO GIVEN.
--- NOTE | 2017-08-04 13:52 | NUR ---
PT REPORTED HE IS UNABLE TO REACH FAMILY/FRIEND, HAS NO MONEY TO PAY FOR CAB. POLICY CHECKER ADOLFO INFORMED AND AUTHORISED CAB WILL BE PAID BY US, SHOULD SEND PT HOME. LEAVING UNIT AT THIS TIME VIA W/C TO PICK-UP POINT.
--- NOTE | 2017-08-04 13:55 | NUR ---
Discharge instructions given. Patient verbalizes understanding of same. Discharged in stable condition via Wheelchair to Home with *Other. All belongings sent with pt.
== END 2017-08-04 13:50 | disposition home or self-care (01) | DRG 191 ==
LOC: ED 19:07 → ED-I 08-04 04:00 → ED 08-04 04:25 → MS2 08-04 04:26
PROVIDERS: Emergency Medicine; ADMIT Internal Medicine; ATTEND Internal Medicine
PROC: 3E0234Z Introduction of Serum, Toxoid and Vaccine into Muscle, Percutaneous Approach (ICD-10-PCS; principal; 2017-08-04)
PROC: 3E0234Z Introduction of Serum, Toxoid and Vaccine into Muscle, Percutaneous Approach (ICD-10-PCS; 2017-08-04)
DX: J44.1 Chronic obstructive pulmonary disease with (acute) exacerbation (principal); F10.239 Alcohol dependence with withdrawal, unspecified; E83.42 Hypomagnesemia; F32.9 Major depressive disorder, single episode, unspecified; F10.229 Alcohol dependence with intoxication, unspecified; S00.31XA Abrasion of nose, initial encounter; S00.212A Abrasion of left eyelid and periocular area, initial encounter; F17.210 Nicotine dependence, cigarettes, uncomplicated; S02.2XXA Fracture of nasal bones, initial encounter for closed fracture; M15.9 Polyosteoarthritis, unspecified; F41.9 Anxiety disorder, unspecified; F12.90 Cannabis use, unspecified, uncomplicated; E87.6 Hypokalemia; Y90.8 Blood alcohol level of 240 mg/100 ml or more; Y09 Assault by unspecified means; Z23 Encounter for immunization
CPT/HCPCS: G0378